=== PATIENT | male | born 1960 | race Caucasian/White ===

== ENCOUNTER 2017-03-28 17:48 | Emergency (ER) | payer OTHER ==
--- NOTE | 2017-03-28 18:01 | PDOC ---
History of Present Illness - General History Source: Patient Exam Limitations: No Limitations - History of Present Illness Initial Comments: 03/28/17 18:53 The patient is a 57 year old male, with no significant past medical history, who presents to the emergency department complaining of left foot pain for approximately 6-7 days. The patient reports his has been applying bengay to his left foot for the pain, with minimal relief. He reports the pain is exacerbated when baring weight on his left foot . The pain is mainly localized on the heel of the foot. He reports he was prescribed Naproxen for the pain with minimal relief. The patient denies any recent trauma to the left foot. He denies any lacerations, edema, or ecchymosis of the left foot. He denies that his pain radiates up his left leg, numbness, or paresthesias. He denies any recent travel. He denies any symptoms like this in the past. Allergies: NKDA Past Surgical History: None reported Social History: Non smoker. No ETOH or drug use. <Bismark Ricardo - Last Filed: 03/28/17 18:53> - General History Source: Patient Exam Limitations: No Limitations <Angelica Harvey - Last Filed: 03/28/17 19:03> - General Chief Complaint: Pain Stated Complaint: LEFT FOOT PAIN Time Seen by Provider: 03/28/17 17:53 Past History <Bismark Ricardo - Last Filed: 03/28/17 18:53> - Psycho/Social/Smoking Cessation Hx Anxiety: No Suicidal Ideation: No Smoking Status: No Smoking History: Never smoked Number of Cigarettes Smoked Daily: 0 Hx Alcohol Use: No Drug/Substance Use Hx: No <Angelica Harvey - Last Filed: 03/28/17 19:03> - Past Medical History Allergies/Adverse Reactions: Allergies Allergy/AdvReac Type Severity Reaction Status Date / Time No Known Allergies Allergy Verified 03/28/17 17:49 Home Medications: Ambulatory Orders Acetaminophen W/ Codeine #3 [Tylenol # 3 -] 1 tab PO TID PRN #15 tablet MDD 3 Lidocaine 5% Patch [Lidoderm Patch -] 1 patch TP DAILY PRN #30 patch 03/28/17 Naproxen [Naprosyn -] 500 mg PO BID 03/28/17 Review of Systems - Review of Systems Able to Perform ROS?: Yes Comments:: 03/28/17 18:49 GENERAL/CONSTITUTIONAL: No: fever, chills, weakness, loss of appetite. HEAD, EYES, EARS, NOSE AND THROAT: No: change in vision, ear pain, discharge, sore throat, throat swelling. CARDIOVASCULAR: No: chest pain, lightheadedness, palpitations, syncope RESPIRATORY: No: cough, shortness of breath, wheezing, hemoptysis, stridor. GASTROINTESTINAL: No: nausea, vomiting, abdominal cramping, diarrhea, rectal bleeding, constipation. GENITOURINARY: No: dysuria, hematuria, frequency, urgency, flank pain. MUSCULOSKELETAL: Yes: +left foot pain. No: back pain, neck pain, joint pain, muscle swelling or pain SKIN AND BREASTS: No: lesions, pallor, rash or easy bruising. NEUROLOGIC: No: headache, vertigo, paresthesias, weakness ENDOCRINE: No: unexplained weight gain or loss HEMATOLOGIC/LYMPHATIC: No: anemia, easy bleeding, swelling nodes <Ricardo,Giomilsy - Last Filed: 03/28/17 18:53> *Physical Exam - Vital Signs Last Vital Signs Temp Pulse Resp BP Pulse Ox 98.2 F 78 20 132/86 98 03/28/17 17:49 03/28/17 17:49 03/28/17 17:49 03/28/17 17:49 03/28/17 17:49 - Physical Exam Comments: 03/28/17 18:47 GENERAL: The patient is in no acute distress. HEAD: Normal with no signs of trauma. EYES: PERRLA, EOMI, sclera anicteric, conjunctiva clear. ENT: Ears normal, nares patent, oropharynx clear without exudates. Moist mucous membranes. NECK: Normal range of motion, supple without lymphadenopathy, JVD, or masses. LUNGS: Breath sounds equal, clear to auscultation bilaterally. No wheezes, and no crackles. HEART:Regular rate and rhythm, normal S1 and S2 without murmur, rub or gallop. ABDOMEN: Soft, nontender, normoactive bowel sounds. No guarding, no rebound. EXTREMITIES: Normal range of motion, no edema. No clubbing or cyanosis. No erythema, or tenderness. NEUROLOGICAL: Cranial nerves II through XII grossly intact. Normal speech. No focal neurological deficits. MUSCULOSKELETAL: Patient reports tenderness over the left medial heel. Back non -tender to palpation, no CVA tenderness SKIN: Warm, Dry, normal turgor, no rashes or lesions noted. <Bismark Ricardo - Last Filed: 03/28/17 18:53> Medical Decision Making - Medical Decision Making 03/28/17 18:01 A portion of this note was documented by scribe services under my direction. I have reviewed the details of the note, within reason, and agree with the documentation with the following case summary and management plan written by me. Nursing documentation reviewed and incorporated into medical decision making 03/28/17 18:30 This is a 57-year-old relatively healthy male presenting to the emergency department with a complaint of left foot pain which is been present between 6 and 7 days. No trauma. No lacerations. No swelling. No bruising. No prior symptoms like this. Patient states his pain is severe when he ambulates. His pain is located in the heel. He was prescribed naproxen for his pain which she states has not helped his symptoms. Examination: Pt reports tenderness over the medial heel Will do x ray ?possible heel spur vs. plantar faciitis Will need to follow up with podiatry 03/28/17 19:02 X-rays reviewed. No fracture seen. Will discharge with pain medications. Follow-up with podiatry <Angelica Harvey - Last Filed: 03/28/17 19:03> *DC/Admit/Observation/Transfer - Attestations Scribe Attestion: 03/28/17 18:47 Documentation prepared by Bismrak Ricardo, acting as medical aide for Angelica Harvey MD. <Bismark Ricardo - Last Filed: 03/28/17 18:53> - Discharge Dispostion Admit: No <Angelica Harvey - Last Filed: 03/28/17 19:03> Diagnosis at time of Disposition: Foot pain, left - Discharge Dispostion Disposition: HOME Condition at time of disposition: Stable - Prescriptions Prescriptions: Acetaminophen W/ Codeine #3 [Tylenol # 3 -] 1 tab PO TID PRN #15 tablet MDD 3 PRN Reason: Pain - Referrals Referrals: Uriah Song MD [Staff Physician] - - Patient Instructions Printed Discharge Instructions: DI for Foot Pain, DI for Plantar Fasciitis Additional Instructions: Thank you for coming in to the ER Please take medications as prescribed Please follow up with a Health Aide within 1 week Return to the ER for any other concerns or complaints
[2017-03-28 18:12] VITALS: BP 132/86; PULSE 78; TEMP 98.2; BMI 27.1
== END 2017-03-28 19:09 | disposition home or self-care (01) ==
LOC: FER 17:48
DX: M79.672 Pain in left foot (principal)
CPT/HCPCS: 73630-TC-LT; 99281-25

== ENCOUNTER 2018-06-01 17:44 | Emergency (ER) | payer OTHER ==
[2018-06-01] MEDS ORDERED: ACETAMINOPHEN 325 MG TABLET (FP) PO ONE (17:53)
[2018-06-01] MEDS ORDERED: CYCLOBENZAPRINE HCL 10 MG TABLET (FP) PO ONE (17:54)
[2018-06-01] MEDS ORDERED: CYCLOBENZAPRINE HCL 10 MG TABLET (FP) ONE (17:56)
[2018-06-01] MEDS ORDERED: ACETAMINOPHEN 325 MG TABLET (FP) ONE (17:57)
--- NOTE | 2018-06-01 18:00 | PDOC ---
History of Present Illness - General Chief Complaint: Pain Stated Complaint: BACK PAIN 2 WEEKS Time Seen by Provider: 06/01/18 17:46 History Source: Patient Exam Limitations: No Limitations - History of Present Illness Initial Comments: 06/01/18 17:54 58y M no significant pmhx presents with complaint of back pain. The pt notes the pain started after awakening 2 weeks ago. Started gradually and has been worsrening, is always present at a mild degree but worsens when he is standing up and walking around. pt denies n/v, fever/chills, numbnes/tingling/weakness, heamturia, dysuria, urinary or bowel incontinence. 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 pt has anothe rcomplaint of a mid abdomenal mass - notes that 2 months ago, he was lifting a heavy TV and started to notice an abdominal mass. no associated n/ v or pain. Past History - Past Medical History Allergies/Adverse Reactions: Allergies Allergy/AdvReac Type Severity Reaction Status Date / Time No Known Allergies Allergy Verified 06/01/18 17:46 Home Medications: Ambulatory Orders Cyclobenzaprine HCl [Flexeril 10 mg] 10 mg PO BID PRN #15 tablet 06/01/18 Motrin - PRN PRN 06/01/18 COPD: No Other medical history: NONE - Immunization History Immunization Up to Date: No - Suicide/Smoking/Psychosocial Hx Smoking Status: No Smoking History: Never smoked Have you smoked in the past 12 months: No Number of Cigarettes Smoked Daily: 0 Information on smoking cessation initiated: No Hx Alcohol Use: No Drug/Substance Use Hx: No Substance Use Type: None Review of Systems - Review of Systems Able to Perform ROS?: Yes Comments:: 06/01/18 18:00 Constitutional - no reported Fever, Chills, HEENT: no reported vision changes, sore throat Respiratory: no reported cough, sob, hemoptysis Cardiac: no reported chest pain, palpitations, light headedness, leg swelling Abd/GI: no reported abd pain, nausea, vomiting, blood per rectum, melena, diarrhea : no reported dysuria, frequency, discharge Musculskelatal - + back pain no reported oint swelling skin - no reported bruising, erythema, rash neurological: no reported headache, numbness, focal weakness, tingling, ataxia, hematologic: no reported easy bruising, easy bleeding *Physical Exam - Vital Signs Last Vital Signs Temp Pulse Resp BP Pulse Ox 98.3 F 70 16 129/73 100 06/01/18 17:45 06/01/18 17:45 06/01/18 17:45 06/01/18 17:45 06/01/18 17:45 - Physical Exam Comments: 06/01/18 18:01 GENERAL: The patient is awake, alert, and fully oriented, Nontoxic - in no acute distress. HEAD: Normocephalic, atraumatic. EYES: extraocular movements intact, sclera anicteric, conjunctiva clear. ENT: Normal voice, Moist mucous membranes. NECK: Normal range of motion, supple LUNGS: Breath sounds equal, clear to auscultation bilaterally. No wheezes, no rhonchi, no rales. HEART: Regular rate and rhythm, normal S1 and S2 without murmur, rub or gallop. ABDOMEN: Soft, nontender, No guarding, no rebound. No CVA tenderness, + reducible ventral hernia in the mid abdomen EXTREMITIES: Normal range of motion, no edema. BACK: No midline cervical/thoracic/lumbar tenderness, mild paravertebral lumbar tendernesss in R lower back NEUROLOGICAL: No facial assymetry, Normal speech, PSYCH: Normal mood, normal affect. SKIN: Warm, Dry, normal turgor, Medical Decision Making - Medical Decision Making 06/01/18 18:03 Differential includes kidney stones versus muscular back pain Will obtain UA to screen for hematuria Give the patient Tylenol and flexeril as pt had motrin at 3pm johnna reassess 06/01/18 18:55 pt feeling improved able to abmulate ua neg for hematuria will dc wth pmd fu return precautions were discussed I discussed the physical exam findings, ancillary test results and final diagnoses with the patient. I answered all of the patient's questions. The patient was satisfied with the care received and felt comfortable with the discharge plan and treatment plan. The patient will call their primary care physician within 24 hours to arrange follow-up and will return to the Emergency Department with any new, persistent or worsening symptoms. *DC/Admit/Observation/Transfer Diagnosis at time of Disposition: Low back pain Qualifiers: Chronicity: acute Back pain laterality: right Sciatica presence: with sciatica Sciatica laterality: sciatica of right side Qualified Code(s): M54.41 - Lumbago with sciatica, right side - Discharge Dispostion Disposition: HOME Condition at time of disposition: Improved Decision to Admit order: No - Referrals - Patient Instructions Printed Discharge Instructions: DI for Low Back Pain Additional Instructions: Return to the emergency department immediately with ANY new, persistent or worsening symptoms including numbness, tingling, weakness, fevers or any other concerns. Take ibuprofen (400mg)/tylenol(650mg) every 6 hours for 2 days. Take the flexeril as prescribed if you still have pain/discomfort. Apply heat to your sore muscles. You MUST call and follow up with your doctor in 5 days for further evaluation of your symptoms. Your emergency department visit is not complete without a followup with your doctor for reevaluation.. Results were discussed with you. Please make sure your doctor reviews the results of your emergency evaluation. Print Language: WOLOF - Post Discharge Activity
[2018-06-01 18:06] VITALS: BP 129/73; PULSE 70; TEMP 98.3; BMI 32.5
[2018-06-01 18:16] LABS: URINE APPEARANCE Clear; URINE BILIRUBIN Negative (NEGATIVE); URINE COLOR Yellow; URINE GLUCOSE (UA) Negative (NEGATIVE); URINE KETONE Negative (NEGATIVE); URINE LEUK ESTERASE Negative (NEGATIVE); URINE NITRITE Negative (NEGATIVE); URINE PROTEIN Negative (NEGATIVE); URINE UROBILINOGEN 0.2 (0.2-1.0)
== END 2018-06-01 19:10 | disposition home or self-care (01) ==
LOC: FER 17:44
DX: M54.41 Lumbago with sciatica, right side (principal)
CPT/HCPCS: 81003; 99282-25

== ENCOUNTER 2019-11-07 11:35 | Emergency (ER) | payer OTHER ==
[2019-11-07 11:52] VITALS: PULSE 79; TEMP 97.4; BMI 32.5
[2019-11-07] MEDS ORDERED: MECLIZINE HCL 25 MG TABLET (FP) PO ONE (12:16)
[2019-11-07] MEDS ORDERED: IBUPROFEN 600 MG TABLET (FP) PO ONE ×2 (12:16→12:28)
--- NOTE | 2019-11-07 12:24 | PDOC ---
History of Present Illness - General Chief Complaint: Lightheaded Stated Complaint: HEADACHE Time Seen by Provider: 11/07/19 11:51 History Source: Patient Exam Limitations: Language Barrier - History of Present Illness Initial Comments: 11/07/19 12:21 59y M with PMH of vertigo presenting to ED with dizziness. Pt states last time he felt like this was in 2001 and was told he had a fluid collection in his ear. He states that he woke up this morning and felt a spinning sensation worse when changing positions (sitting to standing). Denies headache, changes in vision, numbness/tingling, earache, syncope, tinnitus, recent illnesses, n/v/d, abdominal pain. He also endorses a pain in the dorsal surface of the R foot going on for 2 weeks which is painful in the AM and develops into a burning sensation. Denies injuries, lesions. PMD: PMH: see hpi PSH: Meds: none Allergies: nkda Social: denies Past History - Past Medical History Allergies/Adverse Reactions: Allergies Allergy/AdvReac Type Severity Reaction Status Date / Time No Known Allergies Allergy Verified 11/07/19 11:39 Home Medications: Ambulatory Orders Ibuprofen 800 mg PO BID PRN 11/07/19 Meclizine HCl [Antivert -] 25 mg PO QID #28 tablet 11/07/19 COPD: No Other medical history: VERTIGO - Immunization History Immunization Up to Date: No - Psycho Social/Smoking Cessation Hx Smoking Status: No Smoking History: Never smoked Have you smoked in the past 12 months: No Number of Cigarettes Smoked Daily: 0 Hx Alcohol Use: No Drug/Substance Use Hx: No Substance Use Type: None Review of Systems - Review of Systems Constitutional: No: Symptoms Reported HEENTM: No: Symptoms Reported Respiratory: No: Symptoms reported Cardiac (ROS): No: Symptoms Reported ABD/GI: No: Symptoms Reported : No: Symptoms Reported Musculoskeletal: Yes: See HPI Integumentary: No: Symptoms Reported Neurological: Yes: See HPI, Dizziness. No: Headache, Numbness, Weakness, Ataxia *Physical Exam - Vital Signs Last Vital Signs Temp Pulse Resp BP Pulse Ox 97.4 F L 79 16 136/90 100 11/07/19 11:36 11/07/19 11:36 11/07/19 11:36 11/07/19 11:36 11/07/19 11:36 - Physical Exam General Appearance: Yes: Nourished, Appropriately Dressed. No: Apparent Distress HEENT: positive: EOMI, RUMA, Normal ENT Inspection, Other (no cerumen impaction) Neck: positive: Trachea midline, Supple. negative: Lymphadenopathy (R), Lymphadenopathy (L) Respiratory/Chest: positive: Lungs Clear, Normal Breath Sounds. negative: Crackles, Rales, Rhonchi, Stridor, Wheezing Cardiovascular: positive: Regular Rhythm, Regular Rate, S1, S2. negative: Edema , JVD, Murmur Vascular Pulses: Dorsalis-Pedis (R): 2+, Doralis-Pedis (L): 2+ Gastrointestinal/Abdominal: positive: Normal Bowel Sounds. negative: Tender Musculoskeletal: positive: Other (normal foot exam, no lesions, no masses, no discolorations). negative: CVA Tenderness Extremity: positive: Normal Capillary Refill. 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 negative: Sensory Deficit Medical Decision Making - Medical Decision Making 11/07/19 12:28 59y m presenting for dizziness. Had similar episode in the past. vitals wnl likely peripheral vertigo; no neurological deficits, positional, negative HINTS , sudden onset. pt ambulated into ER. had head CT 2y ago; no abnormalities. will treat with meclizine, ibuprofen for foot pain. will give neurology f/u and pmd f/u. 11/07/19 13:06 pt feeling less vertiginous, is ambulatory. will dc home, given neurology and pmd f/u. return precautions given. Discharge - Discharge Information Problems reviewed: Yes Clinical Impression/Diagnosis: Vertigo, Right foot pain Condition: Good Disposition: HOME - Admission No - Additional Discharge Information Prescriptions: Meclizine HCl [Antivert -] 25 mg PO QID #28 tablet - Follow up/Referral Referrals: Quinton Cantu MD [Staff Physician] - Michael Valderrama MD [Staff Physician] - Tony Troncoso MD [Staff Physician] - [facility] [Provider Group] - Patient Discharge Instructions Patient Printed Discharge Instructions: DI for Vertigo Additional Instructions: You most likely have peripheral vertigo. A prescription for meclizine was sent to the pharmacy, take as directed. This medicine can make you drowsy, do not drive or operate machinery when taking this medication. I recommend that you see your primary care doctor and a neurologist. The names and phone numbers are provided below. If you do not have a primary care doctor, [facility] (information is provided below). Come back to the emergency room if you start developing headaches, if you pass out, have changes in your vision, weakness, numbness or tingling or if any new or concerning symptom develops. Thank you - Post Discharge Activity Work/Back to School Note: Back to Work
[2019-11-07] MEDS ORDERED: MECLIZINE HCL 25 MG TABLET (FP) ONE (12:28)
--- NOTE | 2019-11-07 12:36 | PDOC ---
Attending Attestation - Resident Resident Name: Dianne Groves - ED Attending Attestation I have performed the following: I have examined & evaluated the patient, The case was reviewed & discussed with the resident, I agree w/resident's findings & plan - HPI HPI: 11/07/19 12:33 59y M with PMH of vertigo 2/2 fluid collection in the ear (last episode 2001), presenting to ED with dizziness. He states that he woke up this morning and felt a spinning sensation worse when changing positions (sitting to standing). Denies headache, changes in vision, numbness/tingling, earache, syncope, tinnitus, recent illnesses, n/v/d, abdominal pain. He also endorses a pain in the dorsal surface of the R foot going on for 2 weeks which is painful in the AM and develops into a burning sensation. Denies injuries, lesions. no meds taken. no trauma no fever or chills or infectious sx. - Physicial Exam PE: 11/07/19 12:33 Agree with the resident's HPI and PE as documented in the electronic medical record. NAD, well appearing, Alert, oriented to person time and place. EOMI, PERRL, no nystagmus, nl conjunctiva, anicteric; CN II-XII grossly intact. neck supple. lungs clear, RRR, abdomen soft nontender. no rebound, guarding. Back nontender. LEON x4, no focal neuro deficits. No peripheral edema. normal color for ethnicity , WWP. Strength prox and distally 5/5 throughout. Sensation grossly intact to light touch. LEON x4. No cerebellar signs, no dysmetria, bilateral finger to nose and heel to scott equal and symmetric. Speech clear. no calf tenderness or swelling. - Medical Decision Making 11/07/19 12:35 Vital Signs Temp Pulse Resp BP Pulse Ox 97.4 F L 79 16 136/90 100 11/07/19 11:36 11/07/19 11:36 11/07/19 11:36 11/07/19 11:36 11/07/19 11:36 VS reviewed wnl ddx. vertigo, central vs peripheral. cerumen impaction, labrynthitis. BPPV no focal neuro sx no indication for CT imaging ambulatory, no cerebellar signs noted. has had prior headache eval, last ED visit in [address] imaging has not seen neurologist/pmd for long time. no other high risk features to suggest neurologic etiology. no trauma/sz, AMS, infectious sx or focal neuro deficits treat supportively, meclizine, reassess analgesia for foot pain/cramping (x 2 week duration) no sx to suggest DVT or VTE.
[2019-11-07 13:05] VITALS: BP 119/83
== END 2019-11-07 13:10 | disposition home or self-care (01) ==
LOC: FER 11:35
DX: M79.671 Pain in right foot (principal); R42 Dizziness and giddiness
CPT/HCPCS: 99282-25

== ENCOUNTER 2020-05-04 19:56 | Emergency (ER) | payer OTHER ==
[2020-05-04 20:05] VITALS: BP 135/79; PULSE 73; TEMP 97.9; BMI 30.7
[2020-05-04] MEDS ORDERED: HYOSCYAMINE SULFATE 0.125 MG *ODT PO ONE (20:17)
[2020-05-04] MEDS ORDERED: ACETAMINOPHEN 500 MG TABLET (FP) PO ONE ×2 (20:19→20:22)
[2020-05-04] MEDS ORDERED: ACETAMINOPHEN 325 MG TABLET (FP) ONE (20:25)
--- NOTE | 2020-05-04 20:31 | PDOC ---
Documentation entered by Vasu Simeon SCRIBE, acting as scribe for Augustine Pendleton MD. Augustine Pendleton MD: This documentation has been prepared by the Blanco hernandez Angel, SCRIBE, under my direction and personally reviewed by me in its entirety. I confirm that the documentation accurately reflects all work, treatment, procedures, and medical decision making performed by me. History of Present Illness - General Chief Complaint: Pain, Acute Stated Complaint: RIGHT ARM PAIN/INJURY History Source: Patient, Family (Son) Exam Limitations: No Limitations - History of Present Illness Initial Comments: 05/04/20 20:20 The patient is a 60 year old male with a significant past medical history of vertigo who presents to the ED accompanied by his son with right arm pain. The patients son states while it was raining earlier around 4pm the patient went to meat pickler something that fell outside and when he lifted he felt a tearing sensation in his right forearm. The patient took 800mg of Motrin prior to arrival. The patient has no other complaints here in the ED. PAST SURGICAL HISTORY: no significant history FAMILY HISTORY: no pertinent history ALLERGIES: As per nursing notes 05/04/20 20:26 Assessment and plan: This is a 60-year-old male who was lifting a heavy object when he felt a tearing sensation in his right forearm. Patient has tenderness over palpation of the belly of the brachial radialis muscle most likely tore or partially tore the muscle and does not appear to be completely torn. Patient given a sling and told to take pain medication and follow-up with an orthopedist patient given Dr. Chano Pedro for follow-up Past History - Medical History Allergies/Adverse Reactions: Allergies Allergy/AdvReac Type Severity Reaction Status Date / Time No Known Allergies Allergy Verified 11/07/19 11:39 Home Medications: Ambulatory Orders Ibuprofen 800 mg PO TID PRN #30 tablet 07/14/19 Ibuprofen [Motrin -] 600 mg PO ONCE 07/14/19 Ibuprofen 800 mg PO BID PRN 11/07/19 Meclizine HCl [Antivert -] 25 mg PO QID #28 tablet 11/07/19 COPD: No - Immunization History Immunization Up to Date: No - Psycho-Social/Smoking History Smoking Status: No Smoking History: Never smoked Have you smoked in the past 12 months: No Number of Cigarettes Smoked Daily: 0 Review of Systems - Review of Systems Able to Perform ROS?: Yes Comments:: 05/04/20 20:20 General: No fevers or chills, no weakness, no weight loss HEENT: No change in vision. No sore throat. No ear pain CardioVascular: No chest pain or shortness of breath Respiratory:No cough, or wheezing. Gastrointestinal: no nausea, vomiting, diarrhea or constipation, No rectal bleeding Genitourinary: No dysuria, hematuria, or frequency Musculoskeletal: +RUE pain. Neurologic: No headache, vertigo, dizziness or loss of consciousness Psychiatric: nor depression Skin: No rashes or easy bruising Endocrine: no increased thirst or abnormal weight change Allergic: no skin or latex allergy All other systems reviewed and normal *Physical Exam - Physical Exam 05/04/20 20:24 GENERAL: The patient is awake, alert, and fully oriented, in no acute distress. HEAD: Normal with no signs of trauma. EYES: Pupils equal, round and reactive to light, extraocular movements intact, sclera anicteric, conjunctiva clear. EXTREMITIES: +Right arm tenderness and swelling over the belly of the brachioradialis. No bony tenderness, neurovascular intact. NEUROLOGICAL: Normal speech, normal gait. PSYCH: Normal mood, normal affect. SKIN: Warm, Dry, normal turgor, no rashes or lesions noted. Discharge - Discharge Information Problems reviewed: Yes Clinical Impression/Diagnosis: Pain in right forearm Condition: Stable Disposition: HOME - Admission No - Follow up/Referral Referrals: Aravind Madden MD [Staff Physician] - - Patient Discharge Instructions Additional Instructions: You can alternate Tylenol or Motrin every 4 hours as needed for pain take 2 extra strength Tylenol or 3 regular strength Motrin. Wear the sling while awake for comfort and support of the forearm. Call Dr. Madden in the morning and get an appointment to follow-up as soon as possible. Return to the emergency department immediately with ANY new, persistent or worsening symptoms. Continue any medications as previously prescribed by your physician. You should follow up with the orthopedic doctor as soon as possible regarding today's emergency department visit. . Please make sure your doctor reviews the results of your emergency evaluation. Thank you for coming to the Emergency Department today for your care. It was a pleasure to see you today. Please note that your evaluation is INCOMPLETE until you follow-up with your doctor. - Post Discharge Activity
== END 2020-05-04 20:48 | disposition home or self-care (01) ==
LOC: FER 19:56
DX: M79.631 Pain in right forearm (principal)
CPT/HCPCS: 99284-25

== ENCOUNTER 2021-08-12 19:57 | Emergency (ER) | payer OTHER ==
[2021-08-12 20:21] VITALS: BP 115/77; PULSE 79; TEMP 99; BMI 27.8
[2021-08-12] MEDS ORDERED: IBUPROFEN 600 MG TABLET (FP) PO ONE ×2 (22:34→22:39)
== END 2021-08-12 22:47 | disposition home or self-care (01) ==
LOC: FER 19:57
DX: S76.102A Unspecified injury of left quadriceps muscle, fascia and tendon, initial encounter (principal); M25.462 Effusion, left knee; X50.0XXA Overexertion from strenuous movement or load, initial encounter
CPT/HCPCS: 73560-TC-LT-FY; 93971-TC; 99284-25